=== PATIENT | male | born 1935 | race Caucasian/White ===

== ENCOUNTER → 2016-05-19 | Outpatient (CLI) | payer OTHER ==
[~2016-05-19] MED LIST: ACETAMINOPHEN-1 EAC1 PO; ADULT LOW DOSE81 M1 PO; AMARYL4 MG PO; AMBIZINE25 MG PO; AMLODIPINE BESYL5 MG PO; ANTI-DIARRHEA2 MG PO; APLISOL5 TUB UNIT ID; ASPIR 8181 M1 PO; ASPIRIN325 MG PO; ATROVENT 00.5 MG/2.5 IH; CALCITRIOL0.25 MCG PO; CALCIUM ACETAT667 M2 PO; COZAAR25 MG PO; COZAAR50 MG PO; CRANBERRY200 MG PO; CRANBERRY400 M1 PO; CRANBERRY400 MG PO; DRISDOL50000 UNIT PO; DULCOLAX10 MG PR; ENDOCET 5-3251 EACH PO; FLEET ENEMA-AD118 ML PR; FLOMAX0.4 MG PO; FLORANEX CHE1 TABLET PO; FLORASTOR250 MG PO; GEMFIBROZIL600 MG PO; HEPARIN SO1000 UNIT1 INTRA-CATH; KEFLEX500 MG PO; LEVAQUIN500 MG PO; LOPID600 MG PO; LOSARTAN POTASS25 MG PO; MECLIZINE HCL25 MG PO; METOPROLOL SUC100 MG PO; METOPROLOL TART50 MG PO; MILK OF MAGN PO; NABI650T PO; NORVASC10 MG PO; PROMETHAZINE HC25 M1 PO; PROVENTIL,2.5 MG/3 M IH; ROCALTROL0.25 MCG PO; ROCALTROL0.5 MCG PO; Rocaltrol PO; SODIUM BICARBO325 MG PO; ST. JOSEPH ASPI81 MG PO; SYMBICORT60 INHALAT IH; TOPROL XL100 MG PO; TOPROL XL50 MG PO; TYLENOL REGULA325 MG PO; VITAMIN D1000 UNIT PO; VITAMIN D250000 UNIT PO; Vitamin D, Drisdol PO; ZOFRAN4 MG PO
== END | disposition home or self-care (01) ==
LOC: CDC 11:26
DX: R94.31 Abnormal electrocardiogram [ECG] [EKG] (principal); I45.10 Unspecified right bundle-branch block; I25.2 Old myocardial infarction
CPT/HCPCS: 93000

== ENCOUNTER 2016-05-21 09:33 | Day surgery (SDC) | payer OTHER ==
[~2016-05-21] VITALS: Ht 170.2 cm; Wt 90.7 kg
[2016-05-21 10:39] LABS: HEMATOCRIT 31.7 % (38.0-50.0); MCH 29.5 PG (29.0-34.0); MCHC 31.9 G/DL (30.0-36.0); MCV 92.7 FL (86-99); PLATELET COUNT 231 K/uL (156-360); RBC DIS.WIDTH-SD 51.4 % (39-53); RED BLOOD COUNT 3.42 M/uL (4.00-5.50); WHITE BLOOD COUNT 9.2 K/uL (4.1-10.2)
[2016-05-21 10:49] VITALS: BP 118/52
[2016-05-21 10:50] LABS: CHLORIDE 104 mEq/L (99-109); POTASSIUM 3.1 mEq/L (3.7-5.4); SODIUM 139 mEq/L (136-147)
[2016-05-21 10:51] LABS: GLUCOSE 80 mg/dL (70-99)
[2016-05-21 10:53] LABS: ANION GAP 13 MEQ/L (2-14)
[2016-05-21 10:55] LABS: GFR ESTIMATE (CALCULATED) 20 mL/min/
[2016-05-21 10:56] LABS: UREA NITROGEN (BUN) 21 mg/dL (9-23)
[2016-05-21 11:25] LABS: METH RESISTANT S AUREUS PCR NEGATIVE (NEGATIVE); PROBE CHECK PASS; SPECIMEN PROCESSING CONTROL PASS
[2016-05-21 15:05] VITALS: BP 129/59
[2016-05-21 15:40] VITALS: BP 151/65
== END 2016-05-21 16:02 ==
LOC: SDC
PROVIDERS: Surgery
PROC: 03170ZD Bypass Right Brachial Artery to Upper Arm Vein, Open Approach (ICD-10-PCS; principal; 2016-05-21)
DX: E11.22 Type 2 diabetes mellitus with diabetic chronic kidney disease (principal); I12.0 Hypertensive chronic kidney disease with stage 5 chronic kidney disease or end stage renal disease; N18.6 End stage renal disease; Z99.2 Dependence on renal dialysis; J44.9 Chronic obstructive pulmonary disease, unspecified; I73.9 Peripheral vascular disease, unspecified; M19.90 Unspecified osteoarthritis, unspecified site; Z86.73 Personal history of transient ischemic attack (TIA), and cerebral infarction without residual deficits
CPT/HCPCS: 80048; 82948; 85027; 87641; J0690; J1644; J2720; J3010